=== PATIENT | male | born 1960 | race Caucasian/White ===

== ENCOUNTER 2018-12-18 15:43 | Emergency (ER) | payer SELFPAY ==
[2018-12-18 16:44] LABS: Absolute Lymphocytes (CBC) 2.5 K/uL (0.7-4.9); Basophils % 0.7 % (0-1.3); Hematocrit 37.3 % (39.6-49.0); Lymphocytes % 27.7 % (15.3-44.8); MPV 7.4 fL (7.6-11.3); RBC Red Blood Cell Count 4.15 M/uL (4.33-5.43)
[2018-12-18] MEDS ORDERED: ONDANSETRON 4 MG/2 ML VIAL ONE (16:49)
[2018-12-18] MEDS ORDERED: FENTANYL CITR 100 MCG/2 ML ONE ×2 (16:49→17:55)
--- NOTE | 2018-12-18 16:57 | RAD REPORT ---
EXAM DESCRIPTION: RAD - Forearm Left - 12/18/2018 4:51 pm CLINICAL HISTORY: crush injury;Pain COMPARISON: <Comparisons> FINDINGS: There is a transverse nondisplaced fracture of the midshaft of the radius seen. Small radi opaque foreign body is seen in the soft tissues along the ulnar mid forearm. No evidence of a disloca tion.
--- NOTE | 2018-12-18 16:58 | RAD REPORT ---
EXAM DESCRIPTION: RAD - Hand Left 3 View - 12/18/2018 4:51 pm CLINICAL HISTORY: PAIN COMPARISON: <Comparisons> FINDINGS: Radiocarpal arthritic changes are present. No fracture or dislocation seen.
[2018-12-18 17:01] LABS: Potassium 3.5 mmol/L (3.5-5.1)
--- NOTE | 2018-12-18 17:31 | ER ---
Nurse's Notes [facility] Name: Sujit Juan Age: 58 yrs Sex: Male : 1960 Arrival Date: 12/18/2018 Time: 15:45 Bed 19 Private MD: Diagnosis: Transverse fracture of shaft of radius Presentation: 12/18 15:51 Presenting complaint: Left arm was pinned under cab of tractor for approx 10 minutes 1 hb week ago, then 2 days ago felt a pop in the left arm while opening truck door. Now c/o worsening left arm swelling and pain 01/11. Transition of care: patient was not received from another setting of care. Onset of symptoms was December 18, 2018. Risk Assessment: Do you want to hurt yourself or someone else? Patient reports no desire to harm self or others. Initial Sepsis Screen: Does the patient meet any 2 criteria? No. Patient's initial sepsis screen is negative. Does the patient have a suspected source of infection? No. Patient's initial sepsis screen is negative. Care prior to arrival: None. 15:51 Method Of Arrival: Ambulatory 15:51 Acuity: STIVEN 3 hb Historical: - Allergies: 15:53 No Known Allergies; hb - Home Meds: 15:53 None [Active]; hb - PMHx: 15:53 None; hb - PSHx: 15:54 Foot - Left; hb - Immunization history:: Adult Immunizations up to date. - Social history:: Smoking status: Patient/guardian denies using tobacco. - Ebola Screening: : No symptoms or risks identified at this time. Screenin:04 Abuse screen: Denies threats or abuse. Nutritional screening: No deficits noted. em Tuberculosis screening: No symptoms or risk factors identified. Fall Risk None identified. Assessment: 16:15 General: Appears in no apparent distress. uncomfortable, Behavior is calm, cooperative, em Denies fever. Pain: Complains of pain in dorsal aspect of left forearm, left wrist and palmar aspect of left forearm Pain currently is 10 out of 10 on a pain scale. Quality of pain is described as pressure. Neuro: Level of Consciousness is awake, alert, obeys commands, Oriented to person, place, time, situation. Cardiovascular: Capillary refill < 3 seconds Patient's skin is warm and dry. Respiratory: Airway is patent Respiratory effort is even, unlabored, Respiratory pattern is regular, symmetrical. GI: Patient currently denies nausea, vomiting. Derm: Skin is intact, is healthy with good turgor, Skin is pink, warm \T\ dry. Musculoskeletal: Range of motion: limited in left elbow and left wrist Swelling present in dorsal aspect of left forearm, left wrist and palmar aspect of left forearm. 17:00 Reassessment: Patient appears in no apparent distress at this time. Patient and/or em family updated on plan of care and expected duration. Pain level reassessed. Patient is alert, oriented x 3, equal unlabored respirations, skin warm/dry/pink. pain 10/10. 17:55 Reassessment: Patient appears in no apparent distress at this time. Patient and/or em family updated on plan of care and expected duration. Pain level reassessed. Patient is alert, oriented x 3, equal unlabored respirations, skin warm/dry/pink. request more pain medication prior to discharge, provider notified, received orders to repeat previously given medication. Vital Signs: 15:54 BP 133 / 83; Pulse 60; Resp 16; Temp 98.4; Pulse Ox 98% on R/A; Weight 86.18 kg; Height hb 5 ft. 1 in. (154.94 cm); Pain 9/10; 17:00 BP 143 / 88; Pulse 65; Resp 18; Pulse Ox 99% on R/A; Pain 10/10; em 18:04 BP 127 / 89; Pulse 54; Resp 18; Pulse Ox 99% on R/A; Pain 8/10; em 15:54 Body Mass Index 35.90 (86.18 kg, 154.94 cm) hb ED Course: 15:45 Patient arrived in ED. mr 15:53 Triage completed. hb 15:54 Arm band placed on. hb 16:03 Michael Kingston PA is PHCP. jr8 16:03 Corey Maxwell MD is Attending Physician. jr8 16:03 Romeo Mireles LVN is Primary Nurse. em 16:04 Patient has correct armband on for positive identification. Placed in gown. Bed in low em position. Adult w/ patient. 16:37 Initial lab(s) drawn, by me, sent to lab. Inserted saline lock: 20 gauge in right lt1 antecubital area, using aseptic technique. 16:51 XRAY Hand LEFT 3 View In Process Unspecified. EDMS 16:52 XRAY Forearm LEFT In Process Unspecified. EDMS 17:29 Mike Elaine MD is Referral Physician. jr8 18:06 No provider procedures requiring assistance completed. IV discontinued, intact, em bleeding controlled, No redness/swelling at site. Pressure dressing applied. 18:08 Orthoglass splint: Sugar tong splint applied on left arm. Sling applied to left arm. em Administered Medications: 16:55 Drug: Zofran 4 mg Route: IVP; Site: right antecubital; ss 17:25 Follow up: Response: No adverse reaction em 16:58 Drug: fentaNYL (PF) 75 mcg Route: IVP; Site: right antecubital; ss 18:08 Follow up: Response: No adverse reaction; Pain is decreased; RASS: Alert and Calm (0) em 18:00 Drug: fentaNYL (PF) 75 mcg Route: IVP; Site: right antecubital; em 18:12 Follow up: Response: No adverse reaction; Marked relief of symptoms; Pain is decreased; em RASS: Alert and Calm (0) Outcome: 17:30 Discharge ordered by . jr8 18:07 Discharged to home ambulatory, with family. em 18:07 Condition: good 18:07 Discharge instructions given to patient, family, Instructed on discharge instructions, follow up and referral plans. medication usage, Demonstrated understanding of instructions, follow-up care, medications, splint care, Prescriptions given X 2. 18:12 Patient left the ED. em Signatures: Dispatcher [employer] EDAK WallsFaina vásquez Romeo Mireles, PRODUCT ENGINEER PRODUCT ENGINEER em Aubree Jimenez RN RN Michael Kingston, SURI PA jr8 Dania Alvarez RN RN Ale Frost lt1 Corrections: (The following items were deleted from the chart) 16:07 15:51 Presenting complaint: LEWft arm was pinned under cab of tractor for approx 10 hb minutes 1 week ago, then 2 days ago felt a pop in the left arm while opening truck door. Now c/o worsening left arm swelling and pain 9/10 hb 18:08 17:25 Response: No adverse reaction; Pain is decreased em em
--- NOTE | 2018-12-18 17:31 | EDPHYS ---
Physician Documentation [facility] Name: Sujit Juan Age: 58 yrs Sex: Male : 1960 Arrival Date: 12/18/2018 Time: 15:45 Bed 19 Private MD: ED Physician Corey Maxwell HPI: 12/18 17:31 This 58 yrs old Male presents to ER via Ambulatory with complaints of Arm jr8 Injury. 17:31 The patient or guardian complains of an abrasion, decreased range of motion, injury, jr8 pain, swelling, tenderness. The complaints affect the dorsal aspect of left forearm. Context: The problem was sustained at home, resulted from a crush injury, cab of [employer]. Onset: The symptoms/episode began/occurred acutely, 1 week(s) ago. Treatment prior to arrival includes: no previous treatment. Modifying factors: The symptoms are alleviated by nothing. the symptoms are aggravated by movement. Associated signs and symptoms: The patient has no apparent associated signs or symptoms. Severity of symptoms: At their worst the symptoms were moderate, in the emergency department the symptoms are unchanged. The patient has not experienced similar symptoms in the past. The patient has not recently seen a physician. Stated that while working on [employer] cab outside a bolt gave way causing it to land on forearms. Left arm took brunt of it. Stated that he has had pain and swelling since incident . Historical: - Allergies: 15:53 No Known Allergies; hb - Home Meds: 15:53 None [Active]; hb - PMHx: 15:53 None; hb - PSHx: 15:54 Foot - Left; hb - Immunization history:: Adult Immunizations up to date. - Social history:: Smoking status: Patient/guardian denies using tobacco. - Ebola Screening: : No symptoms or risks identified at this time. ROS: 17:31 Eyes: Negative for injury, pain, redness, and discharge, ENT: Negative for injury, jr8 pain, and discharge, Neck: Negative for injury, pain, and swelling, Cardiovascular: Negative for chest pain, palpitations, and edema, Respiratory: Negative for shortness of breath, cough, wheezing, and pleuritic chest pain, Abdomen/GI: Negative for abdominal pain, nausea, vomiting, diarrhea, and constipation, Back: Negative for injury and pain, Neuro: Negative for headache, weakness, numbness, tingling, and seizure. 17:31 MS/extremity: Positive for abrasion, decreased range of motion, pain, paresthesias, swelling, tenderness, of the dorsal aspect of left forearm. 17:31 Skin: Positive for abrasion(s). Exam: 17:31 Eyes: Pupils equal round and reactive to light, extra-ocular motions intact. Lids and jr8 lashes normal. Conjunctiva and sclera are non-icteric and not injected. Cornea within normal limits. Periorbital areas with no swelling, redness, or edema. ENT: Nares patent. No nasal discharge, no septal abnormalities noted. Tympanic membranes are normal and external auditory canals are clear. Oropharynx with no redness, swelling, or masses, exudates, or evidence of obstruction, uvula midline. Mucous membranes moist. Neck: Trachea midline, no thyromegaly or masses palpated, and no cervical lymphadenopathy. Supple, full range of motion without nuchal rigidity, or vertebral point tenderness. No Meningismus. Cardiovascular: Regular rate and rhythm with a normal S1 and S2. No gallops, murmurs, or rubs. Normal PMI, no JVD. No pulse deficits. Respiratory: Lungs have equal breath sounds bilaterally, clear to auscultation and percussion. No rales, rhonchi or wheezes noted. No increased work of breathing, no retractions or nasal flaring. Abdomen/GI: Soft, non-tender, with normal bowel sounds. No distension or tympany. No guarding or rebound. No evidence of tenderness throughout. Back: No spinal tenderness. No costovertebral tenderness. Full range of motion. Skin: Warm, dry with normal turgor. Normal color with no rashes, no lesions, and no evidence of cellulitis. Neuro: Awake and alert, GCS 15, oriented to person, place, time, and situation. Cranial nerves II-XII grossly intact. Motor strength 5/5 in all extremities. Sensory grossly intact. Cerebellar exam normal. Normal gait. 17:31 Musculoskeletal/extremity: Extremities: grossly normal except: noted in the left arm: abrasion, pain, swelling, tenderness, Swelling noted to distal 1/3 rd of left forearm circumferentially. Healing wound noted to dorsal aspect left forearm. Mild tenderness to palpation. Patient has limited ROM with flexion and extension of wrist secondary to swelling. Mild skin tinting noted with movement secondary to swelling. Has sensation to entire hand including fingers and forearm, Compartment Syndrome exam of affected extremity: no sensation deficit, no palor, no weak pulses, severe pain, with passive ROM, tingling. Vital Signs: 15:54 BP 133 / 83; Pulse 60; Resp 16; Temp 98.4; Pulse Ox 98% on R/A; Weight 86.18 kg; Height hb 5 ft. 1 in. (154.94 cm); Pain 9/10; 17:00 BP 143 / 88; Pulse 65; Resp 18; Pulse Ox 99% on R/A; Pain 10/10; em 18:04 BP 127 / 89; Pulse 54; Resp 18; Pulse Ox 99% on R/A; Pain 8/10; em 15:54 Body Mass Index 35.90 (86.18 kg, 154.94 cm) hb Procedures: 17:31 Performed Compartment Pressure Monitor . Tested to volar compartment and dorsal jr8 compartment where most of the pressure and swelling was. Dorsal pressure was 10mmHg. Volar compartment was 21mmHg. MDM: 16:03 Patient medically screened. jr8 17:27 Data reviewed: vital signs, nurses notes, lab test result(s), radiologic studies, plain jr8 films. Data interpreted: Pulse oximetry: on room air is 99 %. Interpretation: normal. Counseling: I had a detailed discussion with the patient and/or guardian regarding: the historical points, exam findings, and any diagnostic results supporting the discharge/admit diagnosis, lab results, radiology results, the need for outpatient follow up, a orthopedic surgeon, to return to the emergency department if symptoms worsen or persist or if there are any questions or concerns that arise at home. ED course: Consulted Dr. Elaine. Compartment pressure volar compartment was highest at 21mmHg. All others were well within normal limits. Dr. Elaine was good with this. Will splint and have him f/u in clinic on Thursday. Also discussed possibility of retained FB. 12/18 16: Order name: CBC with Diff; Complete Time: 17:14 jr8 12/18 16:17 Order name: Basic Metabolic Panel; Complete Time: 17:14 jr8 12/18 16:17 Order name: CK; Complete Time: 17: jr8 12/18 16:17 Order name: XRAY Hand LEFT 3 View; Complete Time: 17:14 8 12/18 16:17 Order name: XRAY Forearm LEFT; Complete Time: 17:14 12/18 16:17 Order name: IV; Complete Time: 16:38 12/18 17:27 Order name: Splint - Sugar Tong - Forearm; Complete Time: 18:02 Administered Medications: 16:55 Drug: Zofran 4 mg Route: IVP; Site: right antecubital; ss 17:25 Follow up: Response: No adverse reaction em 16:58 Drug: fentaNYL (PF) 75 mcg Route: IVP; Site: right antecubital; ss 18:08 Follow up: Response: No adverse reaction; Pain is decreased; RASS: Alert and Calm (0) em 18:00 Drug: fentaNYL (PF) 75 mcg Route: IVP; Site: right antecubital; em 18:12 Follow up: Response: No adverse reaction; Marked relief of symptoms; Pain is decreased; em RASS: Alert and Calm (0) Disposition: 12/18/18 17:30 Discharged to Home. Impression: Transverse fracture of shaft of radius. - Condition is Stable. - Discharge Instructions: Radial Fracture. - Prescriptions for Ibuprofen 800 mg Oral Tablet - take 1 tablet by ORAL route every 12 hours As needed take with food; 20 tablet. Tylenol- Codeine #3 300-30 mg Oral Tablet - take 2 tablets by ORAL route every 6 hours As needed; 20 tablet. - Medication Reconciliation Form, Thank You Letter, Antibiotic Education, Prescription Opioid Use form. - Follow up: Mike Elaine MD; When: 1 - 2 days; Reason: Recheck today's complaints, Continuance of care, Re-evaluation by your physician. - Problem is new. - Symptoms have improved. Signatures: Dispatcher [employer] EDMS Romeo Mireles, PIPELINE SYSTEMS OPERATOR PIPELINE SYSTEMS OPERATOR em Aubree Jimenez RN RN Michael Sloan PA PA jr8 Dania Alvarez RN RN Corrections: (The following items were deleted from the chart) 18:12 17:30 12/18/2018 17:30 Discharged to Home. Impression: Transverse fracture of shaft of em radius. Condition is Stable. Forms are Medication Reconciliation Form, Thank You Letter, Antibiotic Education, Prescription Opioid Use. Follow up: Mike Elaine; When: 1 - 2 days; Reason: Recheck today's complaints, Continuance of care, Re-evaluation by your physician. Problem is new. Symptoms have improved. jr8
== END 2018-12-18 18:12 | disposition home or self-care (01) ==
LOC: ER 15:43
DX: S52.322A Displaced transverse fracture of shaft of left radius, initial encounter for closed fracture (principal); W30.9XXA Contact with unspecified agricultural machinery, initial encounter; Y93.89 Activity, other specified; Y92.9 Unspecified place or not applicable
CPT/HCPCS: 36415; 80048; 82550; 85025; 96374; 96375; 99284; J2405; J3010

== ENCOUNTER 2018-12-25 11:07 | Emergency (ER) | payer SELFPAY ==
[2018-12-25] MEDS ORDERED: LORAZEPAM 0.5 MG TABLET ONE (12:57)
--- NOTE | 2018-12-25 13:19 | ER ---
Nurse's Notes [facility] Name: Sujit Juan Age: 58 yrs Sex: Male : 1960 Arrival Date: 12/25/2018 Time: 11:10 Bed 27 Private MD: Diagnosis: Anxiety disorder, unspecified Presentation: 12/25 11:31 Presenting complaint: Patient states: Broke arm last week and had cast placed yesterday ph to L arm yesterday by [place] and now states that the cast feels tight and like his hand is swelling, states, " It's making me feel anxious." Cap refill intact w/ minimal swelling noted. Transition of care: patient was not received from another setting of care. Onset of symptoms was December 25, 2018. Risk Assessment: Do you want to hurt yourself or someone else? Patient reports no desire to harm self or others. Initial Sepsis Screen: Does the patient meet any 2 criteria? No. Patient's initial sepsis screen is negative. Does the patient have a suspected source of infection? No. Patient's initial sepsis screen is negative. Care prior to arrival: None. 11:31 Method Of Arrival: Ambulatory ph 11:31 Acuity: STIVEN 4 ph Historical: - Allergies: 11:36 No Known Allergies; ph - Home Meds: 11:36 None [Active]; ph - PMHx: 11:36 None; ph - Social history:: Smoking status: unknown. - Ebola Screening: : No symptoms or risks identified at this time. Screenin:15 Abuse screen: Denies threats or abuse. Denies injuries from another. Nutritional mg2 screening: No deficits noted. Tuberculosis screening: No symptoms or risk factors identified. Fall Risk None identified. Assessment: 13:16 General: Appears in no apparent distress. comfortable, Behavior is calm, cooperative. mg2 Pain: Denies pain. Neuro: Level of Consciousness is awake, alert, obeys commands, Oriented to person, place, time, situation. Neuro: Reports anxiety with the cast on that he cant move his casted arm. Cardiovascular: Capillary refill < 3 seconds Patient's skin is warm and dry. Respiratory: Airway is patent Respiratory effort is even, unlabored, Respiratory pattern is. GI: No signs and/or symptoms were reported involving the gastrointestinal system. : No signs and/or symptoms were reported regarding the genitourinary system. EENT: No signs and/or symptoms were reported regarding the EENT system. Derm: Skin is intact, is healthy with good turgor, Skin is pink, warm \\T\\ dry. normal. Musculoskeletal: Circulation, motion, and sensation intact. Capillary refill < 3 seconds. 13:25 Reassessment: Patient states feeling better. Patient states symptoms have improved. mg2 Vital Signs: 11:35 BP 133 / 79; Pulse 63; Resp 18; Temp 97.9; Pulse Ox 99% on R/A; ph 13:24 BP 123 / 78; Pulse 70; Resp 18; Temp 98; Pulse Ox 100% on R/A; Pain 0/10; mg2 ED Course: 11:10 Patient arrived in ED. mr 11:35 Triage completed. ph 11:36 Arm band placed on Patient placed in waiting room, Patient notified of wait time. ph 12:27 Celeste Paez F[facility]-C [facility] kb 12:27 Juan Francisco Morales MD is Attending Physician. kb 12:56 Jimmy Fuentes, MORGAN is Primary Nurse. mg2 13:15 No provider procedures requiring assistance completed. Patient did not have IV access mg2 during this emergency room visit. 13:18 Patient has correct armband on for positive identification. mg2 Administered Medications: 13:02 Drug: Ativan 0.5 mg Route: PO; mg2 13:25 Follow up: Response: No adverse reaction; Marked relief of symptoms mg2 Outcome: 13:18 Discharge ordered by . kb 13:26 Discharged to home ambulatory, with family. mg2 13:26 Condition: stable 13:26 Discharge instructions given to patient, family, Instructed on discharge instructions, follow up and referral plans. medication usage, Demonstrated understanding of instructions, follow-up care, medications, Prescriptions given X 1. 13:26 Patient left the ED. mg2 Signatures: Celeste Paez FNP-C FNP-Ckb Faina Walls Ping Chang RN RN ph Jimmy Fuentes RN RN mg2
--- NOTE | 2018-12-25 13:20 | EDPHYS ---
Physician Documentation [facility] Name: Sujit Juan Age: 58 yrs Sex: Male : 1960 Arrival Date: 12/25/2018 Time: 11:10 Bed 27 Private MD: ROSETTA Physician Juan Francisco Morales HPI: 12/25 13:09 This 58 yrs old Male presents to ER via Ambulatory with complaints of Anxiety.kb 13:10 The patient presents to the emergency department with anxiety, over cast being on. kb Onset: The symptoms/episode began/occurred today. Associated signs and symptoms: Pertinent positives; anxiety, Pertinent negatives: abdominal pain, chest pain, chills, delusions, depression, fever, hallucinations, headache, homicidal ideation, nausea, night sweats, palpitations, paranoia, shortness of breath, substance abuse, suicide ideation, tremor, vomiting. Severity of symptoms: At their worst the symptoms were moderate in the emergency department the symptoms are unchanged. The patient has not experienced similar symptoms in the past. The patient has been recently seen by a physician: Dr. Elaine yesterday, with different complaint(s). Pt reports he got his hard cast on yesterday and today he has had a lot of anxiety because he cannot move his arm due to the cast. Historical: - Allergies: 11:36 No Known Allergies; ph - Home Meds: 11:36 None [Active]; ph - PMHx: 11:36 None; ph - Social history:: Smoking status: unknown. - Ebola Screening: : No symptoms or risks identified at this time. ROS: 13:04 Constitutional: Negative for fever, chills, and weight loss, ENT: Negative for injury, kb pain, and discharge, Neck: Negative for injury, pain, and swelling, Cardiovascular: Negative for chest pain, palpitations, and edema, Respiratory: Negative for shortness of breath, cough, wheezing, and pleuritic chest pain, Abdomen/GI: Negative for abdominal pain, nausea, vomiting, diarrhea, and constipation, Back: Negative for injury and pain, : Negative for injury, bleeding, discharge, and swelling, MS/Extremity: Negative for injury and deformity, Skin: Negative for injury, rash, and discoloration, Neuro: Negative for headache, weakness, numbness, tingling, and seizure. 13:04 Psych: Positive for anxiety, Negative for depression, drug dependence, alcohol dependence, auditory hallucinations, visual hallucinations, homicidal ideation, insomnia, suicide gesture, suicidal ideation. Exam: 13:03 Constitutional: This is a well developed, well nourished patient who is awake, alert, kb and in no acute distress. Head/Face: Normocephalic, atraumatic. ENT: Nares patent. No nasal discharge, no septal abnormalities noted. Tympanic membranes are normal and external auditory canals are clear. Oropharynx with no redness, swelling, or masses, exudates, or evidence of obstruction, uvula midline. Mucous membranes moist. Neck: Trachea midline, no thyromegaly or masses palpated, and no cervical lymphadenopathy. Supple, full range of motion without nuchal rigidity, or vertebral point tenderness. No Meningismus. Chest/axilla: Normal chest wall appearance and motion. Nontender with no deformity. No lesions are appreciated. Cardiovascular: Regular rate and rhythm with a normal S1 and S2. No gallops, murmurs, or rubs. Normal PMI, no JVD. No pulse deficits. Respiratory: Lungs have equal breath sounds bilaterally, clear to auscultation and percussion. No rales, rhonchi or wheezes noted. No increased work of breathing, no retractions or nasal flaring. Abdomen/GI: Soft, non-tender, with normal bowel sounds. No distension or tympany. No guarding or rebound. No evidence of tenderness throughout. Skin: Warm, dry with normal turgor. Normal color with no rashes, no lesions, and no evidence of cellulitis. Neuro: Awake and alert, GCS 15, oriented to person, place, time, and situation. Cranial nerves II-XII grossly intact. Motor strength 5/5 in all extremities. Sensory grossly intact. Cerebellar exam normal. Normal gait. 13:03 Musculoskeletal/extremity: Extremities: grossly normal except: noted in the left arm: hard cast in place. Vital Signs: 11:35 BP 133 / 79; Pulse 63; Resp 18; Temp 97.9; Pulse Ox 99% on R/A; ph 13:24 BP 123 / 78; Pulse 70; Resp 18; Temp 98; Pulse Ox 100% on R/A; Pain 0/10; mg2 MDM: 12:27 Patient medically screened. kb 13:03 Data reviewed: vital signs, nurses notes. Data interpreted: Pulse oximetry: on room air kb is 99 %. Interpretation: normal. Counseling: I had a detailed discussion with the patient and/or guardian regarding: the historical points, exam findings, and any diagnostic results supporting the discharge/admit diagnosis, the need for outpatient follow up, a family practitioner, to return to the emergency department if symptoms worsen or persist or if there are any questions or concerns that arise at home. 13:13 ED course: Pt educated on the importance of the cast immobilizing his arm for healing kb of fracture. Administered Medications: 13:02 Drug: Ativan 0.5 mg Route: PO; mg2 13:25 Follow up: Response: No adverse reaction; Marked relief of symptoms mg2 Disposition: 16:43 Co-signature as Attending Physician, Juan Francisco Morales MD I agree with the assessment and valerio plan of care. Disposition: 12/25/18 13:18 Discharged to Home. Impression: Anxiety disorder, unspecified. - Condition is Stable. - Discharge Instructions: Panic Attacks, [id number]. - Prescriptions for Hydroxyzine HCl 25 mg Oral Tablet - take 1 tablet by ORAL route every 6 hours As needed; 30 tablet. - Medication Reconciliation Form, Thank You Letter, Antibiotic Education, Prescription Opioid Use form. - Follow up: Emergency Department; When: As needed; Reason: Worsening of condition. Follow up: Private Physician; When: 2 - 3 days; Reason: Recheck today's complaints, Continuance of care, Re-evaluation by your physician. Signatures: Celeste Paez, IR[employer]ER-C VAZQUEZ-Juan Francisco Nascimento MD MD cha Hall, Patricia, RN RN Jimmy Fuentes RN RN mg2 Corrections: (The following items were deleted from the chart) 13:13 13:10 Pt reports he got his hard cast on yesterday and today he has had a lot of kb anxiety because he cannot move his arm. kb 13:26 13:18 12/25/2018 13:18 Discharged to Home. Impression: Anxiety disorder, unspecified. mg2 Condition is Stable. Forms are Medication Reconciliation Form, Thank You Letter, Antibiotic Education, Prescription Opioid Use. Follow up: Emergency Department; When: As needed; Reason: Worsening of condition. Follow up: Private Physician; When: 2 - 3 days; Reason: Recheck today's complaints, Continuance of care, Re-evaluation by your physician. kb
== END 2018-12-25 13:26 | disposition home or self-care (01) ==
LOC: ER 11:07
DX: F41.9 Anxiety disorder, unspecified (principal)
CPT/HCPCS: 99283